=== PATIENT | male | born 2000 | race Two or more races ===

== ENCOUNTER → 2020-03-18 | Outpatient (CLI) | payer SELFPAY | LOC: LAB 11:05 | PROVIDERS: ATTEND Physician Assistant | DX: Z20.828 Contact with and (suspected) exposure to other viral communicable diseases (principal) | CPT/HCPCS: 36415; 84484 ==

== ENCOUNTER → 2020-08-14 | Outpatient (CLI) | payer OTHER ==
--- NOTE | 2020-08-14 15:18 | RAD ---
3 views the right shoulder without comparison for right shoulder pain, baseball injury. FINDINGS: No fracture or acute osseous abnormality is seen. No pathologic calcifications. Joints and soft tissues are grossly unremarkable. IMPRESSION: 1. Normal radiographs of the right shoulder. Electronically signed by: Juan Alberto Araiza MD (08/14/2020 3:15 PM) [id number]
== END ==
LOC: RAD 14:33
PROVIDERS: ATTEND Orthopaedic Surgery
DX: M25.511 Pain in right shoulder (principal)
CPT/HCPCS: 73030